=== PATIENT | male | born 1980 | race Caucasian/White ===

== ENCOUNTER 2018-03-29 17:06 | Inpatient (IN) | payer MEDICAID, SELFPAY ==
[2018-03-29] VITALS (7 sets, daily range): BP systolic 110–175; BP diastolic 75–99; PULSE 89–95; RESP 14–25; TEMP 36.1–39.2; O2SAT 96–100; BMI 40.2; BMI 26.8
--- NOTE | 2018-03-29 17:26 | EKG12_ITS ---
Test Reason : HEADACHE Blood Pressure : / mmHG Vent. Rate : 085 BPM Atrial Rate : 085 BPM P-R Int : 142 ms QRS Dur : 100 ms QT Int : 338 ms P-R-T Axes : 069 062 055 degrees QTc Int : 402 ms Normal sinus rhythm Normal ECG Confirmed by HUBER PITT, GONZÁLEZ ([id number]), telegraph editor WILLIAM RAMEY ([id number] on 04/05/2018 2:24:58 PM Referred By: MR Confirmed By:GONZÁLEZ NGO MD
--- NOTE | 2018-03-29 17:26 | CT_ITS ---
STUDY: CTA OF THE BRAIN REASON FOR EXAM: Male, 38 years old. Lightheaded. Headache. Recent drug use. RADIATION DOSAGE (If Supplied By Facility): CTDIvol = ( 29.27 ) mGy, DLP = ( 1591.20 ) mGycm TECHNIQUE: CT angiography was performed with a multi-detector CT scanner. Data acquisition was obtained from the skull base through the vertex following intravenous administration of 100 ml of Isovue-370. MIP images were reconstructed from the axial data set. Post-processing of the angiographic images was performed, with multiplanar reformation and 3D reconstruction. Individualized dose optimization techniques were used for this CT. COMPARISON: None. FINDINGS: There is no acute bleed or infarct. The ventricles are normal in configuration. Normal bilateral petrous carotid arteries. Normal right cavernous carotid artery with a normal supraclinoid bifurcation. Normal left cavernous carotid artery with a normal supraclinoid bifurcation. Normal right A1 segments of the anterior cerebral artery. Normal left A1 segments of the anterior cerebral artery. Normal intact anterior communicating artery (ACOM). Normal bilateral A2 segments of the anterior cerebral arteries. Normal right M1 and M2 segments of the middle cerebral arteries, with a normal M1 bifurcation. Normal left M1 and M2 segments of the middle cerebral arteries, with a normal M1 bifurcation. Normal right posterior communicating artery (PCOM). Normal left posterior communicating artery (PCOM). Normal bilateral vertebral arteries. Normal basilar artery with a normal basilar bifurcation. The visualized bilateral superior cerebellar (SCA) arteries are normal. Normal bilateral P1, P2 and visualized P3 segments of the posterior cerebral arteries. There is no demonstrated aneurysm of the iliamna of Abad. There is no demonstrated abnormality of the visualized brain. CT/CTA Head W/WO Contrast IMPRESSION: No acute intracranial abnormality. Normal iliamna of Abad without a demonstrated aneurysm or hemodynamically significant stenosis. Electronically Signed: Jaxon Barker, at 19:14 EDT Tel , Service support ,
--- NOTE | 2018-03-29 17:26 | CT_ITS ---
STUDY: CTA NECK WITH CONTRAST REASON FOR EXAM: Male, 38 years old. Headache. Lightheaded. Recent drug use. RADIATION DOSAGE (If Supplied By Facility): CTDIvol = ( 29.27 ) mGy, DLP = ( 1591.20 ) mGycm TECHNIQUE: CT angiography with multi-detector data acquisition was performed from the aortic arch to the skull base following intravenous administration of 100ML ml of Isovue 370 contrast. MIP images were reconstructed from the axial data set. Post-processing of the angiographic images was performed, with multiplanar reformation and 3D reconstruction. Individualized dose optimization techniques were used for this CT. COMPARISON: None. FINDINGS: AORTIC ARCH: Normal visualized aortic arch. Normal origins of the brachiocephalic, left common carotid, and left subclavian arteries. RIGHT CAROTID ARTERIES: Normal right common carotid artery (CCA). Normal right common carotid bulb. Normal origin of the right internal carotid (ICA) artery without a hemodynamically significant stenosis. Normal visualized cervical portion of the right internal carotid artery. Normal origin of the right external carotid artery (ECA). LEFT CAROTID ARTERIES: Normal left common carotid artery (CCA). Normal left common carotid bulb. Normal origin of the left internal carotid (ICA) artery without a hemodynamically significant stenosis. Normal visualized cervical portion of the left internal carotid artery. Normal origin of the left external carotid artery (ECA). VERTEBRAL ARTERIES: Normal bilateral vertebral arteries. CT/CTA Neck W/WO Contrast IMPRESSION: Normal bilateral cervical carotid and vertebral arteries. Electronically Signed: Jaxon Barker, at 19:15 EDT Tel , Service support ,
--- NOTE | 2018-03-29 17:36 | NURSING ---
NO OLD EKGS
[2018-03-29] MEDS: proCHLORPERazine 10 MG/2 ML Vial IV (17:56)
[2018-03-29] MEDS: DiphenhydrAMINE 50 MG/ML Syringe IV (17:59)
[2018-03-29 18:01] LABS: Absolute Lymphocyte Count 2.67 X10^3/ul (0.83-4.51); Absolute Neutrophil Count 2.6 X10^3/uL (2.0-7.7); Basophil# 0.04 X10^3/uL; Basophil% 0.6 % (0-1); Eosinophil# 0.15 X10^3/uL; Eosinophils% 2.4 % (0-5); Hematocrit 38.1 % (40-54); Hemoglobin 12.6 g/dl (13.0-16.5); Lymphocyte # 2.67 X10^3/ul (4.0); Lymphocyte % 42.1 % (19-41); Mean Corp Hgb Conc 33.1 g/gl (32-36); Mean Corpuscular Volume 78.7 fL (80-94); Monocyte# 0.85 X10^3/uL; Monocyte% 13.4 % (0-10); Neutrophil # 2.62 X10^3/uL (2.7-7.7); Neutrophil % 41.3 % (47-70); Platelet Count 294 K/mm3 (150-450); RBC Distribution Width CV 14.2 % (11.6-14.6); RBC Distribution Width SD 40.1 fl (35.1-43.9); Red Blood Count 4.84 M/mm3 (4.6-6.2); White Blood Count 6.3 K/mm3 (4.4-11.0)
[2018-03-29 18:02] LABS: POSITIVE COUNT NO; POSITIVE DIFFERENTIAL NO; POSITIVE MORPHOLOGY NO
[2018-03-29 18:03] LABS: Prothrombin Time (Protime)PT. 13.4 SECONDS (11.7-14.9)
[2018-03-29 18:13] LABS: Bacteria 0 SEEN /hpf (None Seen); Mucous, Urine 0 SEEN /hpf (<or=2+); Red Blood Cells-Urine 0 SEEN /hpf (0-5); Squamous Epithelial Cells - UA 0 SEEN /hpf (0-5); White Blood Cells 0 SEEN /hpf (0-5)
[2018-03-29 18:15] LABS: Color, Urine Yellow (Yellow); Glucose, Dipstick Normal (Normal); Ketone-Dipstick Negative (Negative); Leukocyte Esterase-Dipstick Negative /ul (Negative); Nitrite-Dipstick Negative (Negative); Occult Blood-Urine Negative /ul (Negative); Protein-Dipstick 15 mg/dl (Negative); Urine Bilirubin Dipstick Negative (Negative); Urine Clarity Clear (Clear); Urine Urobilinogen Normal (Normal)
[2018-03-29 18:18] LABS: ALB/GLOB Ratio 0.6 RATIO (0.9-2.4); AST(SGOT) 24 U/L (15-37); Alanine Aminotransfer ALT/SGPT 44 U/L (16-61); Albumin, Serum 2.7 g/dL (3.2-5.0); Alkaline Phosphatase 126 U/L (45-117); Anion Gap 6 (5-15); BUN 11 mg/dL (7-18); Calcium,Total 8.2 mg/dL (8.5-10.1); Chloride 100 mmol/L (98-107); EST Glomerular Filtration Rate 89 mL/min (>60); Est Glom Filt Rate - Afr Amer 108 mL/min (>60); Estimated Creatinine Clearance 124.17 ml/min; Globulin 4.5 g/dL (2.2-4.2); Glucose 105 mg/dL (74-106); Potassium 3.7 mmol/L (3.5-5.1); Protein, Total 7.2 g/dL (6.4-8.2); Sodium Level 135 mmol/L (136-145)
[2018-03-29 19:32] LABS: Lactic Acid 1.5 mmol/L (0.4-2.0)
[2018-03-29] MEDS: Morphine 4 MG/ML Syringe IV (19:36)
[2018-03-29] MEDS: Ondansetron 4 MG/2 ML Vial IV (19:36)
--- NOTE | 2018-03-29 20:28 | HP.PCM_ITS ---
Problem List (1) Meningitis Status: Acute (2) Methamphetamine dependence Status: Acute History of Present Illness Date of Admission: 03/29/18 Chief Complaint: Headache The patient is a 38 year old M with a significant history of tobacco abuse; methamphetamine dependence who presents with persistent excruciating generalized headache that began a day before his admission. Associated with his symptoms is nausea, photophobia and bilateral leg rash. He reports sore neck The emergency department patient was noted to have a fever of 102.6 Fahrenheit. Reportedly he smokes and injects methamphetamine. Past Medical History Medical History: Medical History (Last Updated 03/29/18 @ 22:55 by Paul Schreiber MD) Methamphetamine dependence F15.20 Allergies No Known Allergies Allergy (Verified 03/17/17 04:53) Home Medications: Ambulatory Orders Medication Instructions Recorded No Known/Unobtainable [No Known 01/17/16 Home Medications] Surgical History: no surgical history Lives: Alone Smoking Status: Current every day smoker Tobacco Use: Cigarettes Drugs: - - Methamphetamine - *Family History Maternal Family History: Family History (Last Updated 03/29/18 @ 22:56 by Paul Schreiber MD) Father Hypertension History Items: Cancer - Lymphoma Review of Systems Constitutional: Reports: Chills. Denies: Fever, Weight Change HEENT: Reports: Head Aches. Denies: Sinus Congestion, Sinus Drainage Cardiovascular: Denies: Chest Pain, Palpitations Respiratory: Denies: Cough, Shortness of breath at rest, Sputum production Gastrointestinal: Denies: Abdominal Pain, Nausea, Vomiting Genitourinary: Denies: Dysuria Musculoskeletal: Denies: Joint Pain, Joint Tenderness Skin: Reports: Rash - Bilateral legs. Denies: Wounds Neurological: Denies: Numbness, Tingling, Focal weakness Psychiatric: Denies: Anxiety, Depression, Homicidal Ideations, Suicidal Ideations Hematologic/ Lymphatic: Denies: Easy Bruising, Easy Bleeding VTE Information - Inpt Only VTE Present on Admission: No VTE Mechan Device Prophylaxis: None VTE Pharm Prophylaxis ordered?: Yes Patient Problems: Active and Suspected Problems (Last Updated 03/29/18 @ 22:55 by Paul Schreiber MD) Meningitis (Acute) Methamphetamine dependence (Acute) - Physical Exam General: Alert, Oriented x3, Lethargic - Patient had and received morphine at the time of examination. HEENT: Atraumatic, PERRLA, EOMI, Normocephalic Neck: Supple, No JVD, Negative Carotid Bruits Lungs: Clear to auscultation, Normal air movement Cardiovascular: Regular rate, No murmurs Abdomen: Bowel Sounds Present, Soft, Non Tender Extremities: No edema, Capillary Refill Less than 3 Seconds Skin: - - Petechia rash on bilateral legs. Musculoskeletal: No Tenderness to Palpation of Joints or Extremities Neurological: Cranial nerves II-XII grossly intact, - - Brudzinski sign and Kernig's sign were unremarkable. Psych/Mental Status: Appropriate Vital Signs Temp Pulse Resp BP Pulse Ox 98.9 F 90 14 140/90 H 97 03/29/18 19:09 03/29/18 19:09 03/29/18 19:09 03/29/18 19:09 03/29/18 19:09 Oxygen Flow Rate (L/min) 2 Oxygen Delivery Method Room Air Weight: 150 kg Body Mass Index (BMI) 40.2 Laboratory Tests Past 24 Hrs 03/29/18 03/29/18 03/29/18 17:15 17:15 17:15 WBC 6.3 RBC 4.84 Hgb 12.6 L Hct 38.1 L MCV 78.7 L MCH 26.0 L MCHC 33.1 RDW 14.2 RDW Differential 40.1 Plt Count 294 MPV 9.0 Immature Gran % (Auto) 0.200 Neut % (Auto) 41.3 L Lymph % (Auto) 42.1 H Travis % (Auto) 13.4 H Eos % (Auto) 2.4 Baso % (Auto) 0.6 Absolute Neuts (auto) 2.6 Absolute Lymphs (auto) 2.67 Total Counted Not Reportable PT 13.4 INR 1.0 APTT 40.0 H Sodium 135 L Potassium 3.7 Chloride 100 Carbon Dioxide 29.0 Anion Gap 6 BUN 11 Creatinine 1.00 Estim Creat Clear Calc 124.17 Est GFR (MDRD) Af Amer 108 Est GFR (MDRD) Non-Af 89 BUN/Creatinine Ratio 11.0 Glucose 105 Lactic Acid Calcium 8.2 L Total Bilirubin 0.20 AST 24 ALT 44 Alkaline Phosphatase 126 H Total Protein 7.2 Albumin 2.7 L Globulin 4.5 H Albumin/Globulin Ratio 0.6 L Urine Color Urine Clarity Urine pH Ur Specific [place] Urine Protein Urine Glucose (UA) Urine Ketones Urine Occult Blood Urine Nitrite Urine Bilirubin Urine Urobilinogen Ur Leukocyte Esterase Urine RBC Urine WBC Ur Squamous Epith Cells Urine Bacteria Urine Mucus 03/29/18 03/29/18 18:05 18:39 WBC RBC Hgb Hct MCV MCH MCHC RDW RDW Differential Plt Count MPV Immature Gran % (Auto) Neut % (Auto) Lymph % (Auto) Travis % (Auto) Eos % (Auto) Baso % (Auto) Absolute Neuts (auto) Absolute Lymphs (auto) Total Counted PT INR APTT Sodium Potassium Chloride Carbon Dioxide Anion Gap BUN Creatinine Estim Creat Clear Calc Est GFR (MDRD) Af Amer Est GFR (MDRD) Non-Af BUN/Creatinine Ratio Glucose Lactic Acid 1.5 Calcium Total Bilirubin AST ALT Alkaline Phosphatase Total Protein Albumin Globulin Albumin/Globulin Ratio Urine Color Yellow Urine Clarity Clear Urine pH 8.0 Ur Specific [place] 1.010 Urine Protein 15 H Urine Glucose (UA) Normal Urine Ketones Negative Urine Occult Blood Negative Urine Nitrite Negative Urine Bilirubin Negative Urine Urobilinogen Normal Ur Leukocyte Esterase Negative Urine RBC 0 SEEN Urine WBC 0 SEEN Ur Squamous Epith Cells 0 SEEN Urine Bacteria 0 SEEN Urine Mucus 0 SEEN Assessment/Plan All Active Problems (Last Updated 03/29/18 @ 22:55 by Paul Schreiber MD) Meningitis (Acute) Methamphetamine dependence (Acute) The patient is a 38 year old M with a significant history of tobacco abuse; methamphetamine dependence who presents with persistent excruciating generalized headache; photophobia; fever and petechial rash on his bilateral lower extremities concerning for meningitis. Probable meningitis Lumbar puncture was done at the emergency department. Cerebrospinal fluid studies are pending. CT head and neck was unremarkable. Because the petechia rash, meningococcus meningitis is likely. Blood cultures are pending. Patient was initiated on vancomycin and ceftriaxone at emergency department. Discussed with ED doctor to add Decadron and acyclovir. Vancomycin, ceftriaxone, Decadron and acyclovir continued. We will consult infectious disease to optimize management. Placed on droplet precaution. Zofran as needed for nausea Morphine as needed for pain Supportive treatment with normal saline hydration. Tylenol as needed for fever. Methamphetamine dependence Counseled Clinical monitoring. Tobacco abuse Counseled Patient declined nicotine patch. DVT prophylaxis Subcutaneous heparin. Code Visit Inpatient E&M: 06392 Init Hosp L3
--- NOTE | 2018-03-29 20:33 | ED.VISSUMM ---
- ER Visit Summary Date of Service: 03/29/18 Chief Complaint: Headache History of Present Illness: The patient is a 38 M presenting for evaluation secondary to a headache. Patient has a underlying history of methamphetamine use. He both injects and smokes. Last time he smoked was 3 days ago. Patient reports that this evening at approximately midnight he was awoken suddenly from sleep with a sudden onset of a severe headache. Patient reports that it is in his occiput the front of his head and behind his eyes. It has been a continuous sharp throbbing headache. He states that it is associated with some sensitivity to light and sound. Patient states that he has not had any recent head injuries and denies any fevers, but does state that he noticed a development of a rash on his legs bilaterally. He denies any numbness or visual changes associated with this. He does endorse some generalized weakness. He denies any family history of aneurysm. Physical Examination: Vital signs: Within normal limits except for initial blood pressure 175/99 which improved to 140/90 General: Well-nourished well-developed visibly in pain but not in physiologic distress Head: Normocephalic atraumatic, both occipital and temporal tenderness to palpation are noted without any evidence of step-offs or deformities vesicular rash noted. No sinus tenderness to percussion. Eyes: PERRLA, EOMI. Direct funduscopy shows no evidence of hemorrhage or papilledema. Neck: Supple, no lymphadenopathy, no JVD no meningismus. Negative Brudzinski, Kernig, jolt, and heel strike Cardiovascular: Heart regular rate and rhythm no murmurs Respiratory: Lung sounds clear to auscultation bilaterally no respiratory distress Abdomen: Soft, nontender Extremities: Nontender, no edema Skin: Normal color, petechial rashes noted on the patient's lower extremities bilaterally Neuro: Alert and oriented ?4, cranial nerves II through XII intact, normal strength, sensation Test Results: CBC within normal limits, chemistry within normal limits. EKG shows sinus rate of [address] segments normal T waves. Lactic acid found to be negative. CT angiogram both with and without contrast of the brain and neck are found to be negative. Emergency Department Course and Treatment: Patient presented for evaluation secondary to a sudden onset of a headache. Patient has a history of IV drug use, had a sudden onset of the headache, and also has concomitant petechia. There is concern for the possibility of meningitis versus subarachnoid hemorrhage. Unfortunately the patient's time of onset is well outside of the normal 6 hours for noncontrasted head CT to have adequate sensitivity. CT angiogram was performed and was negative. Patient's blood work was found to be negative he was given Compazine and Benadryl and had some improvement and was given morphine and Zofran. I do believe that he warrants a lumbar puncture. I discussed with him the risks and benefits of lumbar puncture. Written consent was signed. Patient was placed in the left lateral decubitus position. Patient's back was prepped with Betadine, he was draped in a sterile fashion. 5 cc of 2% lidocaine were used for anesthesia. A spinal needle with stylette was then placed in the L4-L5 interspace and on first attempt cerebrospinal fluid was obtained. A total of 8 cc of clear fluid were obtained, and the patient had a dressing placed over top of this and was left in a recumbent position. Patient will be started on vancomycin and Rocephin as I believe him to be high risk for meningitis. Patient will be admitted to the hospitalist. Disposition: Admission Impression: 1. Intractable headache 2. Petechial rash 3. History of IV drug abuse 4. Lumbar puncture by ED physician Critical care time 40 minutes This note was generated with [email or web address] dictation software. It may contain incorrect words, spelling, and punctuation that were not noted in review of the chart prior to signing ED Disposition - Plan for ED Patient: Chief Complaint: Headache Referrals: Care Physician,No Primary [Primary Care Provider] -
[2018-03-29 20:48] LABS: Body Fluid Mononuclear WBC # 0.404 10^3/uL; Body Fluid Mononuclear WBC % 62.7 %; Body Fluid Polynuclear WBC % 37.3 %; Total Cell Count CSF 0.648 10^3/uL (0.000-0.000); White Count, CSF 0.644 10^3/uL (0.000-0.000)
[2018-03-29 20:55] LABS: Glucose Spinal Fluid 44 mg/dL (40-75)
[2018-03-29 21:08] LABS: Auto B Fluid Analyzer BKGD Ct COUNTS W/IN LIMITS (W/IN LIMITS); Tested Tube # 4
[2018-03-29 21:09] LABS: Appearance CSF (character) CLEAR (Clear); CSF Color COLORLESS (Colorless); RBC Count, Spinal Fluid 2 /mm-3 (None seen)
--- NOTE | 2018-03-29 21:18 | ED.RN ---
DR. HORTON MADE AWARE THAT PATIENT HAS A TEMPERATURE OF 102.6.
[2018-03-29] MEDS: Acetaminophen 500 MG Tablet 1000 MG PO (21:27)
[2018-03-29 21:41] LABS: Lymphocytes,CSF 7 % (40 - 80); Monocytes,CSF 27 % (15 - 45); Neutrophils,CSF 66 % (0 - 6)
[2018-03-29 21:42] LABS: Body Fluid QC Type(s) BF2Q
--- NOTE | 2018-03-29 23:22 | PCM.RX.CS ---
Consult Pharmacy has been consulted to manage selected antiobiotic: Vancomycin Type of Consult: New start Suspected Infection: Meningitis Prior Doses of Antibiotics Received/Current Regimen: Medications Vancomycin HCl 1,250 mg/ (Sodium Chloride) 275 mls @ 167 mls/hr IV Q8H HERNAN Discontinued Medications Vancomycin HCl 2,000 mg/ (Sodium Chloride) 540 mls @ 250 mls/hr IV X1 ONE Stop: 03/29/18 22:09 Last Admin: 03/29/18 19:56 Dose: 250 mls/hr Labs: Sodium 135 mmol/L (136-145) L 03/29/18 17:15 Potassium 3.7 mmol/L (3.5-5.1) 03/29/18 17:15 Chloride 100 mmol/L (98-107) 03/29/18 17:15 Carbon Dioxide 29.0 mmol/L (21.0-32.0) 03/29/18 17:15 Anion Gap 6 (5-15) 03/29/18 17:15 BUN 11 mg/dL (7-18) 03/29/18 17:15 Creatinine 1.00 mg/dL (0.70-1.30) 03/29/18 17:15 Est GFR (MDRD) Af Amer 108 mL/min (>60) 03/29/18 17:15 Est GFR (MDRD) Non-Af 89 mL/min (>60) 03/29/18 17:15 BUN/Creatinine Ratio 11.0 RATIO (10-20) 03/29/18 17:15 Glucose 105 mg/dL (74-106) 03/29/18 17:15 Microbiology: Microbiology 03/29/18 20:20 Csf, Spinal Fluid Gram Stain - Preliminary 03/29/18 20:20 Csf, Spinal Fluid Streptococcus pneumoniae Antigen (M - Final Weight used for dosin kg Estimated Creatinine Clearance: 124 Goal Trough: 15-20 mcg/mL Pharmacy Plan for Drug Dosing: Goal trough level of 15-20. Will draw before 4th dose of vancomycin. Pharmacy Service will continue to monitor and adjust dosing as required. Follow-Up Labs: Trough Vancomycin Labs to be done on [date and time ordered]: 03/30/18 @1930
[2018-03-29] MEDS: 0.9% Normal Saline 1,000 ML 75 ML IV (23:51)
[2018-03-30] VITALS (12 sets, daily range): BP systolic 128–157; BP diastolic 72–100; PULSE 58–89; RESP 18; TEMP 36.4–37; O2SAT 94–99
[2018-03-30] MEDS: Morphine 2 MG/ML Syringe IV ×2 (04:24→12:52)
[2018-03-30] MEDS: 0.9% NaCl Peripheral Flush Adult/Peds IV (06:26)
[2018-03-30 06:50] LABS: Hematocrit 40.8 % (40-54); Hemoglobin 13.2 g/dl (13.0-16.5); Mean Corp Hgb Conc 32.4 g/gl (32-36); Mean Corpuscular Hgb 25.8 pg (27.0-32.0); Mean Corpuscular Volume 79.7 fL (80-94); Mean Platelet Vol. 9.5 fl (6.2-12.0); Platelet Count 168 K/mm3 (150-450); RBC Distribution Width CV 14.5 % (11.6-14.6); RBC Distribution Width SD 41.5 fl (35.1-43.9); Red Blood Count 5.12 M/mm3 (4.6-6.2); White Blood Count 4.7 K/mm3 (4.4-11.0)
[2018-03-30 07:07] LABS: Anion Gap 9 (5-15); BUN 10 mg/dL (7-18); BUN/Creat Ratio 11.2 RATIO (10-20); Calcium,Total 8.5 mg/dL (8.5-10.1); Chloride 102 mmol/L (98-107); Creatinine, Serum 0.89 mg/dL (0.70-1.30); EST Glomerular Filtration Rate 102 mL/min (>60); Est Glom Filt Rate - Afr Amer 124 mL/min (>60); Estimated Creatinine Clearance 135.82 ml/min; Glucose 132 mg/dL (74-106); Potassium 4.4 mmol/L (3.5-5.1); Sodium Level 135 mmol/L (136-145)
[2018-03-30 07:11] LABS: Scan Indicated on CBC? Y/N NO
--- NOTE | 2018-03-30 08:08 | PCM.PROGNOTE ---
Patient Problems: Active and Suspected Problems (Last Updated 03/29/18 @ 22:55 by Paul Schreiber MD) Meningitis (Acute) Methamphetamine dependence (Acute) Subjective: Chief complaint: Follow-up after admission for headache with fever, probable meningitis and elevated blood pressure. Patient seen and examined. No acute events overnight. He is still complaining of headache and neck pain. He had only one spike of fever at 102.6, since then he has been afebrile. He denies chest pain or shortness of breath. Denied abdominal pain, nausea vomiting. He denied slurred speech, blurred vision, numbness or tingling. His blood pressure has been elevated, other vital signs are stable. - Physical Exam General: Alert, Oriented x3, Cooperative, No apparent distress HEENT: Atraumatic, PERRLA, EOMI, Normocephalic Oral: Moist Mucosa, No Gingival or Mucosal Lesions/ Ulcerations Neck: Supple, No JVD, Negative Carotid Bruits, Trachea Midline, Thyroid Normal Size and Texture, - - Painful neck movement. Lungs: Clear to auscultation, Normal air movement, No rhonchi, No wheeze, No rales Cardiovascular: Regular rate, Regular Rhythm, Normal S1, Normal S2, No murmurs Abdomen: Bowel Sounds Present, Soft, Non Tender, Non-Distended, No Hepato-splenomegaly Extremities: No clubbing, No cyanosis, No edema Skin: No rashes, No breakdown Lymphatic: No Cervical, Supraclavicular, or Inguinal Adenopathy Neurological: Cranial nerves II-XII grossly intact, Motor Exam 5/5 strength throughout Psych/Mental Status: Normal Affect, Appropriate, Alert and oriented to time, place, person, mood and affect Vital Signs Temp Pulse Resp BP Pulse Ox 97.6 F L 76 18 157/100 H 94 03/30/18 04:19 03/30/18 07:01 03/30/18 04:19 03/30/18 04:19 03/30/18 04:19 Oxygen Flow Rate (L/min) 2 Oxygen Delivery Method Room Air Weight: 220 lb 7.396 oz Body Mass Index (BMI) 26.8 Intake and Output for Last 24 Hours 03/28/18 03/29/18 03/30/18 23:59 23:59 23:59 Intake Total 1500 / 1500 Output Total 2175 / 2175 Balance -675 / -675 Microbiology Past 72 Hours 03/29/18 20:20 Gram Stain - Preliminary Csf, Spinal Fluid 03/29/18 20:20 Streptococcus pneumoniae Antigen (M - Final Csf, Spinal Fluid Laboratory Tests Past 24 Hrs 03/29/18 03/29/18 03/29/18 17:15 17:15 17:15 WBC 6.3 RBC 4.84 Hgb 12.6 L Hct 38.1 L MCV 78.7 L MCH 26.0 L MCHC 33.1 RDW 14.2 RDW Differential 40.1 Plt Count 294 MPV 9.0 Immature Gran % (Auto) 0.200 Neut % (Auto) 41.3 L Lymph % (Auto) 42.1 H [place] % (Auto) 13.4 H Eos % (Auto) 2.4 Baso % (Auto) 0.6 Absolute Neuts (auto) 2.6 Absolute Lymphs (auto) 2.67 Total Counted Not Reportable PT 13.4 INR 1.0 APTT 40.0 H Sodium 135 L Potassium 3.7 Chloride 100 Carbon Dioxide 29.0 Anion Gap 6 BUN 11 Creatinine 1.00 Estim Creat Clear Calc 124.17 Est GFR (MDRD) Af Amer 108 Est GFR (MDRD) Non-Af 89 BUN/Creatinine Ratio 11.0 Glucose 105 Lactic Acid Calcium 8.2 L Total Bilirubin 0.20 AST 24 ALT 44 Alkaline Phosphatase 126 H Total Protein 7.2 Albumin 2.7 L Globulin 4.5 H Albumin/Globulin Ratio 0.6 L Urine Color Urine Clarity Urine pH Ur Specific [place] Urine Protein Urine Glucose (UA) Urine Ketones Urine Occult Blood Urine Nitrite Urine Bilirubin Urine Urobilinogen Ur Leukocyte Esterase Urine RBC Urine WBC Ur Squamous Epith Cells Urine Bacteria Urine Mucus Fld Polynuclear WBCs # Fld Polynuclear WBCs % Fluid Mononuclear WBCs Fld Mononuclear WBCs % CSF Appearance CSF Color CSF WBC CSF RBC CSF Cell Count Tube # CSF Total Cell Counted CSF Neutrophils CSF Lymphocytes CSF Monocytes CSF Comment CSF Glucose CSF Total Protein 03/29/18 03/29/18 03/29/18 18:05 18:39 20:20 WBC RBC Hgb Hct MCV MCH MCHC RDW RDW Differential Plt Count MPV Immature Gran % (Auto) Neut % (Auto) Lymph % (Auto) [place] % (Auto) Eos % (Auto) Baso % (Auto) Absolute Neuts (auto) Absolute Lymphs (auto) Total Counted PT INR APTT Sodium Potassium Chloride Carbon Dioxide Anion Gap BUN Creatinine Estim Creat Clear Calc Est GFR (MDRD) Af Amer Est GFR (MDRD) Non-Af BUN/Creatinine Ratio Glucose Lactic Acid 1.5 Calcium Total Bilirubin AST ALT Alkaline Phosphatase Total Protein Albumin Globulin Albumin/Globulin Ratio Urine Color Yellow Urine Clarity Clear Urine pH 8.0 Ur Specific [place] 1.010 Urine Protein 15 H Urine Glucose (UA) Normal Urine Ketones Negative Urine Occult Blood Negative Urine Nitrite Negative Urine Bilirubin Negative Urine Urobilinogen Normal Ur Leukocyte Esterase Negative Urine RBC 0 SEEN Urine WBC 0 SEEN Ur Squamous Epith Cells 0 SEEN Urine Bacteria 0 SEEN Urine Mucus 0 SEEN Fld Polynuclear WBCs # Fld Polynuclear WBCs % Fluid Mononuclear WBCs Fld Mononuclear WBCs % CSF Appearance CSF Color CSF WBC CSF RBC CSF Cell Count Tube # CSF Total Cell Counted CSF Neutrophils CSF Lymphocytes CSF Monocytes CSF Comment CSF Glucose 44 CSF Total Protein 03/29/18 03/29/18 03/30/18 20:20 20:20 06:00 WBC 4.7 RBC 5.12 Hgb 13.2 Hct 40.8 MCV 79.7 L MCH 25.8 L MCHC 32.4 RDW 14.5 RDW Differential 41.5 Plt Count 168 MPV 9.5 Immature Gran % (Auto) Neut % (Auto) Lymph % (Auto) [place] % (Auto) Eos % (Auto) Baso % (Auto) Absolute Neuts (auto) Absolute Lymphs (auto) Total Counted PT INR APTT Sodium Potassium Chloride Carbon Dioxide Anion Gap BUN Creatinine Estim Creat Clear Calc Est GFR (MDRD) Af Amer Est GFR (MDRD) Non-Af BUN/Creatinine Ratio Glucose Lactic Acid Calcium Total Bilirubin AST ALT Alkaline Phosphatase Total Protein Albumin Globulin Albumin/Globulin Ratio Urine Color Urine Clarity Urine pH Ur Specific [place] Urine Protein Urine Glucose (UA) Urine Ketones Urine Occult Blood Urine Nitrite Urine Bilirubin Urine Urobilinogen Ur Leukocyte Esterase Urine RBC Urine WBC Ur Squamous Epith Cells Urine Bacteria Urine Mucus Fld Polynuclear WBCs # 0.240 Fld Polynuclear WBCs % 37.3 Fluid Mononuclear WBCs 0.404 Fld Mononuclear WBCs % 62.7 CSF Appearance CLEAR CSF Color COLORLESS CSF WBC 0.644 H CSF RBC 2 H CSF Cell Count Tube # 4 CSF Total Cell Counted 0.648 H CSF Neutrophils 66 H CSF Lymphocytes 7 L CSF Monocytes 27 CSF Comment May follow CSF Glucose CSF Total Protein 80.0 H 03/30/18 06:00 WBC RBC Hgb Hct MCV MCH MCHC RDW RDW Differential Plt Count MPV Immature Gran % (Auto) Neut % (Auto) Lymph % (Auto) [place] % (Auto) Eos % (Auto) Baso % (Auto) Absolute Neuts (auto) Absolute Lymphs (auto) Total Counted PT INR APTT Sodium 135 L Potassium 4.4 Chloride 102 Carbon Dioxide 24.0 Anion Gap 9 BUN 10 Creatinine 0.89 Estim Creat Clear Calc 135.82 Est GFR (MDRD) Af Amer 124 Est GFR (MDRD) Non-Af 102 BUN/Creatinine Ratio 11.2 Glucose 132 H Lactic Acid Calcium 8.5 Total Bilirubin AST ALT Alkaline Phosphatase Total Protein Albumin Globulin Albumin/Globulin Ratio Urine Color Urine Clarity Urine pH Ur Specific [place] Urine Protein Urine Glucose (UA) Urine Ketones Urine Occult Blood Urine Nitrite Urine Bilirubin Urine Urobilinogen Ur Leukocyte Esterase Urine RBC Urine WBC Ur Squamous Epith Cells Urine Bacteria Urine Mucus Fld Polynuclear WBCs # Fld Polynuclear WBCs % Fluid Mononuclear WBCs Fld Mononuclear WBCs % CSF Appearance CSF Color CSF WBC CSF RBC CSF Cell Count Tube # CSF Total Cell Counted CSF Neutrophils CSF Lymphocytes CSF Monocytes CSF Comment CSF Glucose CSF Total Protein Clinical Impression(s) from Imaging Studies Head CTA 03/29/18 17:26 IMPRESSION: No acute intracranial abnormality. Normal [place] without a demonstrated aneurysm or hemodynamically significant stenosis. Electronically Signed: Jaxon Barker, at 19:14 EDT Tel , Service support , Neck CTA 03/29/18 17:26 IMPRESSION: Normal bilateral cervical carotid and vertebral arteries. Electronically Signed: Jaxon Barker, at 19:15 EDT Tel , Service support , Medical Necessity - Tobacco Use Smoking Status: Current every day smoker Tobacco Use: Cigarettes Assessment/Plan All Active Problems (Last Updated 03/29/18 @ 22:55 by Paul Schreiber MD) Meningitis (Acute) Methamphetamine dependence (Acute) This is a 38 years old male patient presented to the emergency department because of headache and bilateral lower extremity skin rash, had a spike of fever in the ER, underwent lumbar puncture and he was admitted as a case of probable meningitis. #1 headache/probable meningitis: Head and neck CTA revealed no evidence of acute hemodynamically significant vascular disease or stenosis, no hemorrhage or infarction. His routine blood work was unremarkable. He has no leukocytosis, his lymphocyte count is almost close to normal. Lactic acid and LFT was unremarkable. Urinalysis showed no evidence of acute cystitis. Since that one spike of fever, patient has been afebrile, not tachycardic, pulse ox is maintained on room air. Of note, upon arrival to his blood pressure was 175/99. CSF analysis reviewed. CSF was colorless, there was 644 WBCs, mainly neutrophils, glucose was 44 and protein is 80. CSF findings is not typical for either bacterial or viral meningitis. Patient is on IV acyclovir, Rocephin and vancomycin. Infectious disease consulted, awaiting their recommendations. At this time, this headache could be due to elevated blood pressure but this cannot explain the one spike of fever that patient had as well as bilateral leg skin rash and neck pain. The skin rash on both legs is not typical for petechial rash. Plan to continue same treatment. #2 drug abuse: Patient admitted using methamphetamines. #3 tobacco abuse: Patient declined nicotine patch. #4 DVT prophylaxis: Subcu heparin. This note was generated with DGITation software. It may contain incorrect words, spelling, and punctuation that were not noted in checking the note before signing. Code Visit Inpatient E&M: 72963 Subs Hosp L2
--- NOTE | 2018-03-30 10:28 | CON.PCM_ITS ---
Problem List (1) Meningitis Status: Acute Reason for Consult: meningitis Consulted by: Dr. Castorena History of Present Illness: The patient is a 38 year old M with current IVDU with meth and also heroin. Last injected several days ago. Reports neg hiv and hepatitis test a while ago. Does share needles. No h/o cold sores or HSV. Did have chicken pox as a kid. Sx started with severe 10/10 throbbing whole head headache with some neck sti ffness and photophobia. Developed rash a few days prior to headache, not itchy, on lower legs. Had some nausea. Denies fever or chills. No sick contacts, denies any close household contacts while he's been sick. Came to ED, LP done, started on vanc/ceftriaxone/acyclovir. Headache improved this AM, rated 5/10. Full ROS performed and neg except as noted above. - Medical History Surgical History: reviewed Allergies/Adverse Reactions: Allergies No Known Allergies Allergy (Verified 03/17/17 04:53) Home Medications: Ambulatory Orders Medication Instructions Recorded No Known/Unobtainable [No Known 01/17/16 Home Medications] - Social History Tobacco Use: cigarettes Drug Use: heroin - and meth Vital Signs Temp Pulse Resp BP Pulse Ox 98.2 F 89 18 139/89 H 98 03/30/18 09:09 03/30/18 09:09 03/30/18 09:09 03/30/18 09:09 03/30/18 09:09 Oxygen Flow Rate (L/min) 2 Oxygen Delivery Method Room Air Weight: 100 kg Body Mass Index (BMI) 26.8 Microbiology Past 72 Hours 03/29/18 20:20 Gram Stain - Preliminary Csf, Spinal Fluid 03/29/18 20:20 Streptococcus pneumoniae Antigen (M - Final Csf, Spinal Fluid Laboratory Tests Past 24 Hrs 03/29/18 03/29/18 03/29/18 17:15 17:15 17:15 WBC 6.3 RBC 4.84 Hgb 12.6 L Hct 38.1 L MCV 78.7 L MCH 26.0 L MCHC 33.1 RDW 14.2 RDW Differential 40.1 Plt Count 294 MPV 9.0 Immature Gran % (Auto) 0.200 Neut % (Auto) 41.3 L Lymph % (Auto) 42.1 H [place] % (Auto) 13.4 H Eos % (Auto) 2.4 Baso % (Auto) 0.6 Absolute Neuts (auto) 2.6 Absolute Lymphs (auto) 2.67 Total Counted Not Reportable PT 13.4 INR 1.0 APTT 40.0 H Sodium 135 L Potassium 3.7 Chloride 100 Carbon Dioxide 29.0 Anion Gap 6 BUN 11 Creatinine 1.00 Estim Creat Clear Calc 124.17 Est GFR (MDRD) Af Amer 108 Est GFR (MDRD) Non-Af 89 BUN/Creatinine Ratio 11.0 Glucose 105 Lactic Acid Calcium 8.2 L Total Bilirubin 0.20 AST 24 ALT 44 Alkaline Phosphatase 126 H Total Protein 7.2 Albumin 2.7 L Globulin 4.5 H Albumin/Globulin Ratio 0.6 L Urine Color Urine Clarity Urine pH Ur Specific [place] Urine Protein Urine Glucose (UA) Urine Ketones Urine Occult Blood Urine Nitrite Urine Bilirubin Urine Urobilinogen Ur Leukocyte Esterase Urine RBC Urine WBC Ur Squamous Epith Cells Urine Bacteria Urine Mucus Fld Polynuclear WBCs # Fld Polynuclear WBCs % Fluid Mononuclear WBCs Fld Mononuclear WBCs % CSF Appearance CSF Color CSF WBC CSF RBC CSF Cell Count Tube # CSF Total Cell Counted CSF Neutrophils CSF Lymphocytes CSF Monocytes CSF Comment CSF Glucose CSF Total Protein 03/29/18 03/29/18 03/29/18 18:05 18:39 20:20 WBC RBC Hgb Hct MCV MCH MCHC RDW RDW Differential Plt Count MPV Immature Gran % (Auto) Neut % (Auto) Lymph % (Auto) [place] % (Auto) Eos % (Auto) Baso % (Auto) Absolute Neuts (auto) Absolute Lymphs (auto) Total Counted PT INR APTT Sodium Potassium Chloride Carbon Dioxide Anion Gap BUN Creatinine Estim Creat Clear Calc Est GFR (MDRD) Af Amer Est GFR (MDRD) Non-Af BUN/Creatinine Ratio Glucose Lactic Acid 1.5 Calcium Total Bilirubin AST ALT Alkaline Phosphatase Total Protein Albumin Globulin Albumin/Globulin Ratio Urine Color Yellow Urine Clarity Clear Urine pH 8.0 Ur Specific [place] 1.010 Urine Protein 15 H Urine Glucose (UA) Normal Urine Ketones Negative Urine Occult Blood Negative Urine Nitrite Negative Urine Bilirubin Negative Urine Urobilinogen Normal Ur Leukocyte Esterase Negative Urine RBC 0 SEEN Urine WBC 0 SEEN Ur Squamous Epith Cells 0 SEEN Urine Bacteria 0 SEEN Urine Mucus 0 SEEN Fld Polynuclear WBCs # Fld Polynuclear WBCs % Fluid Mononuclear WBCs Fld Mononuclear WBCs % CSF Appearance CSF Color CSF WBC CSF RBC CSF Cell Count Tube # CSF Total Cell Counted CSF Neutrophils CSF Lymphocytes CSF Monocytes CSF Comment CSF Glucose 44 CSF Total Protein 03/29/18 03/29/18 03/30/18 20:20 20:20 06:00 WBC 4.7 RBC 5.12 Hgb 13.2 Hct 40.8 MCV 79.7 L MCH 25.8 L MCHC 32.4 RDW 14.5 RDW Differential 41.5 Plt Count 168 MPV 9.5 Immature Gran % (Auto) Neut % (Auto) Lymph % (Auto) [place] % (Auto) Eos % (Auto) Baso % (Auto) Absolute Neuts (auto) Absolute Lymphs (auto) Total Counted PT INR APTT Sodium Potassium Chloride Carbon Dioxide Anion Gap BUN Creatinine Estim Creat Clear Calc Est GFR (MDRD) Af Amer Est GFR (MDRD) Non-Af BUN/Creatinine Ratio Glucose Lactic Acid Calcium Total Bilirubin AST ALT Alkaline Phosphatase Total Protein Albumin Globulin Albumin/Globulin Ratio Urine Color Urine Clarity Urine pH Ur Specific [place] Urine Protein Urine Glucose (UA) Urine Ketones Urine Occult Blood Urine Nitrite Urine Bilirubin Urine Urobilinogen Ur Leukocyte Esterase Urine RBC Urine WBC Ur Squamous Epith Cells Urine Bacteria Urine Mucus Fld Polynuclear WBCs # 0.240 Fld Polynuclear WBCs % 37.3 Fluid Mononuclear WBCs 0.404 Fld Mononuclear WBCs % 62.7 CSF Appearance CLEAR CSF Color COLORLESS CSF WBC 0.644 H CSF RBC 2 H CSF Cell Count Tube # 4 CSF Total Cell Counted 0.648 H CSF Neutrophils 66 H CSF Lymphocytes 7 L CSF Monocytes 27 CSF Comment May follow CSF Glucose CSF Total Protein 80.0 H 03/30/18 06:00 WBC RBC Hgb Hct MCV MCH MCHC RDW RDW Differential Plt Count MPV Immature Gran % (Auto) Neut % (Auto) Lymph % (Auto) [place] % (Auto) Eos % (Auto) Baso % (Auto) Absolute Neuts (auto) Absolute Lymphs (auto) Total Counted PT INR APTT Sodium 135 L Potassium 4.4 Chloride 102 Carbon Dioxide 24.0 Anion Gap 9 BUN 10 Creatinine 0.89 Estim Creat Clear Calc 135.82 Est GFR (MDRD) Af Amer 124 Est GFR (MDRD) Non-Af 102 BUN/Creatinine Ratio 11.2 Glucose 132 H Lactic Acid Calcium 8.5 Total Bilirubin AST ALT Alkaline Phosphatase Total Protein Albumin Globulin Albumin/Globulin Ratio Urine Color Urine Clarity Urine pH Ur Specific [place] Urine Protein Urine Glucose (UA) Urine Ketones Urine Occult Blood Urine Nitrite Urine Bilirubin Urine Urobilinogen Ur Leukocyte Esterase Urine RBC Urine WBC Ur Squamous Epith Cells Urine Bacteria Urine Mucus Fld Polynuclear WBCs # Fld Polynuclear WBCs % Fluid Mononuclear WBCs Fld Mononuclear WBCs % CSF Appearance CSF Color CSF WBC CSF RBC CSF Cell Count Tube # CSF Total Cell Counted CSF Neutrophils CSF Lymphocytes CSF Monocytes CSF Comment CSF Glucose CSF Total Protein - Other Studies Radiology: [] reviewed Other Studies: [] Route of nutrition/ use of supplements: [] Nutritional Intake: [] IV Site: [] Colvin Catheter: [] - Physical Exam General: Alert, Oriented x3, Cooperative, No apparent distress HEENT: Atraumatic, PERRLA, EOMI Neck: No Nodes, - - mild stiffness Lungs: Clear to auscultation, Normal air movement Cardiovascular: Regular rate, Regular Rhythm, No murmurs Abdomen: Soft, Non Tender, Non-Distended Extremities: No edema Skin: Rash Present - on legs IV Site: Peripheral, without redness Musculoskeletal: No Tenderness to Palpation of Joints or Extremities Neurological: Cranial nerves II-XII grossly intact - Assessment/Plan Antibiotics: [] Assessment/Plan: [] Active and Suspected Problems (Last Updated 03/29/18 @ 22:55 by Paul Schreiber MD) Meningitis (Acute) Methamphetamine dependence (Acute) acute meningitis - timing and severity raises concern for bacterial cause. CSF cx pending. Sx improved today. Continue vanc/ceftriaxone/acyclovir. Will add on HSV pcr to CSF studies. Fever last night to 102.6. IVDU - meth and heroin use. He consents to hiv and hep studies. Will follow, thank you.
--- NOTE | 2018-03-30 10:34 | CASEMGMT ---
Addendum entered by Kaylee Navas 03/30/18 11:22: SW called [employer], pt's Medicaid has not been active since October. SW met w/pt again, let him know that his Medicaid has not been active since October. Pt does not use his medical card often, was not aware. SW gave pt a Medicaid application and the 800 number, encouraged pt to call to reapply for Medicaid. SW also gave pt information on [facility], [place] [facility], and [facility]. Pt declined information on food pantries as he states knows where they are, declined information on [employer] as he is familiar with them as well, and again declined information on [employer]. SW remains available should any other needs arise. AZALEA Sosa, SENIOR COMMUNICATIONS ENGINEER Original Note: SW spoke w/pt in room, as pt is listed as self pay and pt uses methamphetamines. SW asked pt about his insurance, pt thought his [place] Medicaid was active. SW explained can call [employer] as our financial dept looked it up and the insurance came up as not active. SW also asked pt about his methamphetamine use. Pt states is going to [employer] at discharge, he states spoke w/them and they have a spot for him. Pt is familiar w/[employer] and plans to follow up w/them at discharge, declined any information from SW regarding [employer]. SW will call [employer] to check on pt's insurance and follow up w/pt. AZALEA Sosa, SENIOR COMMUNICATIONS ENGINEER
[2018-03-30] MEDS: hydroCHLOROthiazide 12.5mg 12.5 MG PO (10:47)
[2018-03-30] MEDS: Lisinopril 10 MG Tablet PO (10:47)
[2018-03-30 12:24] LABS: HIV - WCH Non-Reactive (Nonreactive)
[2018-03-30 14:19] LABS: Pathologist Review Reviewed
--- NOTE | 2018-03-30 15:14 | CHAPLAIN ---
Type of Pastoral Visit _x__ Initial Visit ___ Follow-up Visit ___ On-call Visit ___ General Patient Visit ___ Spiritual Assessment ___ Family Conference ___ Bereavement ___ Rapid Response ___ Code Blue ___ Other (describe below) Pastoral Care Referral From _x__ Patient ___ Family ___ Nurse ___ Physician ___ Transportation Security Screener ___ Hook And Eye Sewing Machine Operator ___ Other (describe below) Sacrament/Intervention _x__ Active listening ___ Anointing ___ Lutheran ___ Bereavement ___ Communion _x__ Carrie exploration ___ _x__ Life review _x__ Prayer ___ Reconciliation ___ Sacrament of Sick _x__ Supportive presence ___ Wedding ___ Other (describe below) Pastoral Comments patient is awake but keeps his eyes closed during much of the visit; pt admits that life sucks and that he is homeless, that child and baby mother have left him, and that he has history of drug use that he wants to overcome; pt says that he does better in life when he is working and that I don't use then; pt says that his plan is to go to [facility] and then get a job; pt says that he has no one to be supportive for him in his life; pt says that he no longer has a carrie connection but that he used to attend a Anabaptist or a Non-latter-day anabaptism and is open to spiritual care and prayer support from butadiene convertor operator; pt was informed of possible help from [facility] [place] and SW at hospital; pt is doubtful about qualifying for [facility] but is open to help from SW; SW on U is informed about this patient
--- NOTE | 2018-03-30 20:56 | PCM.RX.CS ---
Consult Pharmacy has been consulted to manage selected antiobiotic: Vancomycin Type of Consult: Follow-up Suspected Infection: Meningitis Prior Doses of Antibiotics Received/Current Regimen: Patient has been on 1250mg iv q8h. Labs: Sodium 135 mmol/L (136-145) L 03/30/18 06:00 Potassium 4.4 mmol/L (3.5-5.1) 03/30/18 06:00 Chloride 102 mmol/L (98-107) 03/30/18 06:00 Carbon Dioxide 24.0 mmol/L (21.0-32.0) 03/30/18 06:00 Anion Gap 9 (5-15) 03/30/18 06:00 BUN 10 mg/dL (7-18) 03/30/18 06:00 Creatinine 0.89 mg/dL (0.70-1.30) 03/30/18 06:00 Est GFR (MDRD) Af Amer 124 mL/min (>60) 03/30/18 06:00 Est GFR (MDRD) Non-Af 102 mL/min (>60) 03/30/18 06:00 BUN/Creatinine Ratio 11.2 RATIO (10-20) 03/30/18 06:00 Glucose 132 mg/dL (74-106) H 03/30/18 06:00 Vancomycin Trough 12.0 ug/mL (5.0-15.0) 03/30/18 19:38 Microbiology: Microbiology 03/29/18 20:20 Csf, Spinal Fluid Gram Stain - Final 03/29/18 20:20 Csf, Spinal Fluid Streptococcus pneumoniae Antigen (M - Final Weight used for dosin kg Estimated Creatinine Clearance: 136 ml/min Goal Trough: 15-20 mcg/mL Pharmacy Plan for Drug Dosing: Patient has been on 1250mg iv q8h. Vancomycin trough level of ..18 is 12.0 (goal range 15-20 mcg/ml). Renal status Cr 0.89 and CrCl 136. Will increase dose to 1500mg iv q8h and obtain another trough level before 4th dose of 1500mg. Pharmacy Service will continue to monitor and adjust dosing as required. Follow-Up Labs: Trough Vancomycin - 11.3.18 @0330 before 0400 dose
[2018-03-30] MEDS: Acetaminophen 500 MG Tablet PO (21:40)
[2018-03-30] MEDS: MELATONIN 10 MG TABLET 5 MG PO (21:41)
[2018-03-31] VITALS (12 sets, daily range): BP systolic 123–138; BP diastolic 64–78; PULSE 55–85; RESP 14–18; TEMP 36.6–36.8; O2SAT 97–100
[2018-03-31] MEDS: 0.9% NaCl Peripheral Flush Adult/Peds IV ×5 (03:27→22:51)
[2018-03-31 05:08] LABS: HEPATITIS B SURFACE AG Negative (Negative); Hepatitis B Core AB IgM Positive (Negative)
--- NOTE | 2018-03-31 08:00 | PCM.PROGNOTE ---
Patient Problems: Active and Suspected Problems (Last Updated 03/29/18 @ 22:55 by Paul Schreiber MD) Meningitis (Acute) Methamphetamine dependence (Acute) Subjective: Chief complaint: Follow-up after admission for probable acute meningitis. Patient seen and examined. No acute events overnight. Today, he reports that his headache is getting better, has no more neck pain. Denies any other significant complaints. He has been afebrile overnight, blood pressure improved, other vital signs are stable. - Physical Exam General: Alert, Oriented x3, Cooperative, No apparent distress HEENT: Atraumatic, PERRLA, EOMI, Normocephalic Oral: Moist Mucosa, No Gingival or Mucosal Lesions/ Ulcerations Neck: Supple, No JVD, Negative Carotid Bruits, Trachea Midline, Thyroid Normal Size and Texture Lungs: Clear to auscultation, Normal air movement, No rhonchi, No wheeze, No rales Cardiovascular: Regular rate, Regular Rhythm, Normal S1, Normal S2, No murmurs Abdomen: Bowel Sounds Present, Soft, Non Tender, Non-Distended, No Hepato-splenomegaly Extremities: No clubbing, No cyanosis, No edema Skin: No breakdown, Rash Present Lymphatic: No Cervical, Supraclavicular, or Inguinal Adenopathy Neurological: Cranial nerves II-XII grossly intact, Motor Exam 5/5 strength throughout Psych/Mental Status: Normal Affect, Appropriate, Alert and oriented to time, place, person, mood and affect Vital Signs Temp Pulse Resp BP Pulse Ox 97.9 F 65 18 126/78 H 98 03/31/18 03:05 03/31/18 07:42 03/31/18 03:05 03/31/18 03:05 03/31/18 06:52 Oxygen Flow Rate (L/min) 2 Oxygen Delivery Method Room Air Weight: 220 lb 7.396 oz Body Mass Index (BMI) 26.8 Intake and Output for Last 24 Hours 03/29/18 03/30/18 03/31/18 23:59 23:59 23:59 Intake Total 4716 / 4716 520 / 520 Output Total 9000 / 9000 1500 / 1500 Balance -4284 / -4284 -980 / -980 Microbiology Past 72 Hours 03/29/18 20:20 Gram Stain - Final Csf, Spinal Fluid 03/29/18 20:20 Streptococcus pneumoniae Antigen (M - Final Csf, Spinal Fluid Laboratory Tests Past 24 Hrs 03/29/18 03/29/18 03/30/18 20:20 20:20 11:00 CSF Comment Reviewed Vancomycin Trough Hepatitis A IgM Ab Pending Hep Bs Antigen Pending Hep B Core IgM Ab Pending Hepatitis C Ab (EIA) Pending Herpes Simplex Culture Pending HSV I DNA PCR Pending HSV II DNA PCR Pending HSV Final Result Pending HIV 1&2 Antibody 03/30/18 03/30/18 11:00 19:38 CSF Comment Vancomycin Trough 12.0 Hepatitis A IgM Ab Hep Bs Antigen Hep B Core IgM Ab Hepatitis C Ab (EIA) Herpes Simplex Culture HSV I DNA PCR HSV II DNA PCR HSV Final Result HIV 1&2 Antibody Non-Reactive Medical Necessity - Tobacco Use Smoking Status: Current every day smoker Tobacco Use: Cigarettes Assessment/Plan All Active Problems (Last Updated 03/29/18 @ 22:55 by Paul Schreiber MD) Meningitis (Acute) Methamphetamine dependence (Acute) This is a 38 years old male patient presented to the emergency department because of headache and bilateral lower extremity skin rash, had a spike of fever in the ER, underwent lumbar puncture and he was admitted as a case of probable meningitis. #1 Probable acute bacterial meningitis: He is on IV acyclovir, Rocephin and vancomycin as well as IV steroids. He has been afebrile overnight, blood pressure improved, other vital signs are stable. Routine blood work was unremarkable from yesterday. Head and neck CTA revealed no evidence of acute hemodynamically significant vascular disease or stenosis, no hemorrhage or infarction. Infectious disease on the case, plan to continue same treatment. #2 elevated blood pressure: Started on HCTZ/lisinopril, blood pressure improved. #3 drug abuse: Patient admitted using methamphetamines. #4 tobacco abuse: Patient declined nicotine patch. #5 DVT prophylaxis: Subcu heparin. This note was generated with [employer] dictation software. It may contain incorrect words, spelling, and punctuation that were not noted in checking the note before signing. Code Visit Inpatient E&M: 73340 Subs Hosp L2
[2018-03-31] MEDS: Lisinopril 10 MG Tablet PO (09:37)
[2018-03-31] MEDS: hydroCHLOROthiazide 12.5mg 12.5 MG PO (09:52)
[2018-03-31] MEDS: Acetaminophen 500 MG Tablet PO (09:52)
--- NOTE | 2018-03-31 11:14 | CASEMGMT ---
SW spoke w/pt again in room, offered to assist pt in applying for Medicaid. Pt states he is just going to go down to [facility] and apply in person. Pt again states plans to go to [facility] at discharge, and is hopeful they will get him back on feet. Pt states he has been there once before in the past. Pt mentioned that the [facility] used to assist him, but they will not help him now as he owes them money. SW inquired if there is anything SW can do to assist, pt declined. No further needs, SW available should pt decide he would accept assist from [facility]. AZALEA Sosa, HYBRID POWERTRAIN DEVELOPMENT ENGINEER
[2018-03-31 11:24] LABS: Hep C Antibodies >11.0 s/co ratio (0.0-0.9)
[2018-03-31] MEDS: Morphine 2 MG/ML Syringe IV ×2 (11:54→17:49)
[2018-03-31 12:18] LABS: Hepatitis A IgM Antibody Negative (Negative)
--- NOTE | 2018-03-31 12:36 | NURSING ---
dr johnson notified pt Hep b core + Hep c virus +
--- NOTE | 2018-03-31 14:49 | PCM.PN.ID ---
Patient Problems: Active and Suspected Problems (Last Updated 03/29/18 @ 22:55 by Paul Schreiber MD) Meningitis (Acute) Methamphetamine dependence (Acute) Subjective: Feeling better, no fever, headache and neck pain improved. - Physical Exam General: Alert, Cooperative, No apparent distress Lungs: Clear to auscultation, Normal air movement Cardiovascular: Regular rate, Regular Rhythm Abdomen: Soft, Non Tender, Non-Distended Skin: No rashes Vital Signs Temp Pulse Resp BP Pulse Ox 98.3 F 79 16 138/78 H 100 03/31/18 09:05 03/31/18 10:00 03/31/18 09:05 03/31/18 09:05 03/31/18 09:05 Oxygen Flow Rate (L/min) 2 Oxygen Delivery Method Room Air Weight: 100 kg Body Mass Index (BMI) 26.8 Intake and Output for Last 24 Hours 03/29/18 03/30/18 03/31/18 23:59 23:59 23:59 Intake Total 4716 / 4716 1270 / 1270 Output Total 9000 / 9000 1999 / 1999 Balance -4284 / -4284 -730 / -730 Microbiology Past 72 Hours 03/29/18 20:20 Gram Stain - Final Csf, Spinal Fluid CSF Culture - Preliminary Culture exhibits no growth. 03/29/18 18:05 Urine Culture - Final Urine, Clean Catch Culture exhibits no growth. 03/29/18 20:20 Streptococcus pneumoniae Antigen (M - Final Csf, Spinal Fluid Laboratory Tests Past 24 Hrs 03/30/18 03/30/18 03/31/18 11:00 19:38 14:16 Vancomycin Trough 12.0 Hepatitis A IgM Ab Negative Hep Bs Antigen Negative Hep Bs Antibody Pending Hep B Core IgM Ab Positive H Hepatitis C Ab (EIA) >11.0 H HCV RNA Quant (PCR) Pending Medical Necessity - Tobacco Use Smoking Status: Current every day smoker Tobacco Use: Cigarettes Route of nutrition/ use of supplements: [] Nutritional Intake: [] IV Site: [] Colvin Catheter: [] - Assessment/Plan Antibiotics: [] Assessment/Plan: [] Active and Suspected Problems (Last Updated 03/29/18 @ 22:55 by Paul Schreiber MD) Meningitis (Acute) Methamphetamine dependence (Acute) acute meningitis - timing and severity raises concern for bacterial cause. CSF cx neg so far. Sx improved today. Continue vanc/ceftriaxone/acyclovir. HSV pcr pending. If CSF cx is finalized as neg, ok to stop antibiotics. If HSV pcr is neg, ok to stop acyclovir. If the PCR is not done by the time he is discharged, would send him home on po acyclovir 800mg tid for 10 days. IVDU - meth and heroin use. HIV was neg. Hep C Ab (+), will check pcr to look for active infection. Hep B Core (+), will check B Ab to see if he is immune. Will follow
--- NOTE | 2018-03-31 17:04 | CHAPLAIN ---
Type of Pastoral Visit ___ Initial Visit _x__ Follow-up Visit ___ On-call Visit ___ General Patient Visit ___ Spiritual Assessment ___ Family Conference ___ Bereavement ___ Rapid Response ___ Code Blue ___ Other (describe below) Pastoral Care Referral From _x__ Patient ___ Family ___ Nurse ___ Physician ___ User Interface Artist ___ Hand Crown Pouncer ___ Other (describe below) Sacrament/Intervention _x__ Active listening ___ Anointing ___ Orthodox ___ Bereavement ___ Communion _x__ Carrie exploration ___ _x__ Life review _x__ Prayer ___ Reconciliation ___ Sacrament of Sick _x__ Supportive presence ___ Wedding ___ Other (describe below) Pastoral Comments patient is alert and eating snacks; pt is more 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
[2018-03-31] MEDS: MELATONIN 10 MG TABLET 5 MG PO (21:34)
[2018-04-01] VITALS (11 sets, daily range): BP systolic 119–138; BP diastolic 69–77; PULSE 55–84; RESP 16–20; TEMP 36.3–36.9; O2SAT 96–100
[2018-04-01 04:05] LABS: Vancomycin, Trough Level 14.5 ug/mL (5.0-15.0)
[2018-04-01] MEDS: Morphine 2 MG/ML Syringe IV ×4 (04:27→20:05)
[2018-04-01] MEDS: 0.9% NaCl Peripheral Flush Adult/Peds IV ×3 (04:27→20:06)
--- NOTE | 2018-04-01 04:30 | PCM.RX.CS ---
Consult Pharmacy has been consulted to manage selected antiobiotic: Vancomycin Type of Consult: Follow-up Suspected Infection: Meningitis Prior Doses of Antibiotics Received/Current Regimen: Medications Vancomycin HCl 1,500 mg/ (Dextrose) 530 mls @ 250 mls/hr IV Q8H HERNAN Last Admin: 04/01/18 04:27 Dose: 250 mls/hr Labs: Sodium 135 mmol/L (136-145) L 03/30/18 06:00 Potassium 4.4 mmol/L (3.5-5.1) 03/30/18 06:00 Chloride 102 mmol/L (98-107) 03/30/18 06:00 Carbon Dioxide 24.0 mmol/L (21.0-32.0) 03/30/18 06:00 Anion Gap 9 (5-15) 03/30/18 06:00 BUN 10 mg/dL (7-18) 03/30/18 06:00 Creatinine 0.89 mg/dL (0.70-1.30) 03/30/18 06:00 Est GFR (MDRD) Af Amer 124 mL/min (>60) 03/30/18 06:00 Est GFR (MDRD) Non-Af 102 mL/min (>60) 03/30/18 06:00 BUN/Creatinine Ratio 11.2 RATIO (10-20) 03/30/18 06:00 Glucose 132 mg/dL (74-106) H 03/30/18 06:00 Vancomycin Trough 14.5 ug/mL (5.0-15.0) 04/01/18 03:29 Microbiology: Microbiology 03/29/18 20:20 Csf, Spinal Fluid Gram Stain - Final 03/29/18 20:20 Csf, Spinal Fluid CSF Culture - Preliminary Culture exhibits no growth. 03/29/18 18:05 Urine, Clean Catch Urine Culture - Final Culture exhibits no growth. 03/29/18 20:20 Csf, Spinal Fluid Streptococcus pneumoniae Antigen (M - Final Weight used for dosin kg Estimated Creatinine Clearance: 136 Goal Trough: 15-20 mcg/mL Pharmacy Plan for Drug Dosing: Trough level of 14.5 was received. Near to the target range 15-20 with the recent increase of dose to 1500mg q8h. Will continue at same dose since near target and with pending cultures due. Pharmacy Service will continue to monitor and adjust dosing as required. Follow-Up Labs: Trough Vancomycin Labs to be done on [date and time ordered]: 04/02/18 @2542
[2018-04-01] MEDS: hydroCHLOROthiazide 12.5mg 12.5 MG PO (10:20)
[2018-04-01] MEDS: Lisinopril 10 MG Tablet PO (10:20)
--- NOTE | 2018-04-01 11:26 | PN_ITS ---
Patient Problems: Active and Suspected Problems (Last Updated 03/29/18 @ 22:55 by Paul Schreiber MD) Meningitis (Acute) Methamphetamine dependence (Acute) Subjective: Chief complaint: Follow-up after admission for probable acute meningitis. Patient seen and examined. No acute events overnight. Today, he denied any significant complaints. He has no more headache, no more neck pain. He has been afebrile. His vital signs are stable. - Physical Exam General: Alert, Oriented x3, Cooperative, No apparent distress HEENT: Atraumatic, PERRLA, EOMI, Normocephalic Oral: Moist Mucosa, No Gingival or Mucosal Lesions/ Ulcerations Neck: Supple, No JVD, Negative Carotid Bruits, Trachea Midline, Thyroid Normal Size and Texture Lungs: Clear to auscultation, Normal air movement, No rhonchi, No wheeze, No rales Cardiovascular: Regular rate, Regular Rhythm, Normal S1, Normal S2, No murmurs Abdomen: Bowel Sounds Present, Soft, Non Tender, Non-Distended, No Hepato- splenomegaly Extremities: No clubbing, No cyanosis, No edema Skin: No breakdown, Rash Present Lymphatic: No Cervical, Supraclavicular, or Inguinal Adenopathy Neurological: Cranial nerves II-XII grossly intact, Neuro grossly intact Psych/Mental Status: Normal Affect, Appropriate, Alert and oriented to time, place, person, mood and affect Vital Signs Temp Pulse Resp BP Pulse Ox 98.4 F 79 18 138/69 H 100 04/01/18 09:40 04/01/18 09:40 04/01/18 09:40 04/01/18 09:40 04/01/18 09:40 Oxygen Flow Rate (L/min) 2 Oxygen Delivery Method Room Air Weight: 220 lb 7.396 oz Body Mass Index (BMI) 26.8 Intake and Output for Last 24 Hours 03/30/18 03/31/18 04/01/18 23:59 23:59 23:59 Intake Total 4716 / 4716 4241 / 4241 498.7 / 498.7 Output Total 9000 / 9000 3525 / 3525 2300 / 2300 Balance -4284 / -4284 716 / 716 -1801.3 / -1801.3 Microbiology Past 72 Hours 03/29/18 18:39 Blood Culture - Preliminary Blood Culture (Wb) - Anticubital Left No growth in 48 hours. 03/29/18 19:05 Blood Culture - Preliminary Blood Culture (Wb) - Anticubital Right No growth in 48 hours. 03/29/18 20:20 Gram Stain - Final Csf, Spinal Fluid CSF Culture - Preliminary Culture exhibits no growth. 03/29/18 18:05 Urine Culture - Final Urine, Clean Catch Culture exhibits no growth. 03/29/18 20:20 Streptococcus pneumoniae Antigen (M - Final Csf, Spinal Fluid Laboratory Tests Past 24 Hrs 03/30/18 03/31/18 04/01/18 11:00 14:16 03:29 Vancomycin Trough 14.5 Hepatitis A IgM Ab Negative Hep Bs Antigen Negative Hep Bs Antibody Pending Hep B Core IgM Ab Positive H Hepatitis C Ab (EIA) >11.0 H HCV RNA Quant (PCR) Pending Medical Necessity - Tobacco Use Smoking Status: Current every day smoker Tobacco Use: Cigarettes Assessment/Plan All Active Problems (Last Updated 03/29/18 @ 22:55 by Paul Schreiber MD) Meningitis (Acute) Methamphetamine dependence (Acute) This is a 38 years old male patient presented to the emergency department because of headache and bilateral lower extremity skin rash, had a spike of fever in the ER, underwent lumbar puncture and he was admitted as a case of probable meningitis. #1 Probable acute bacterial meningitis: Remained on IV acyclovir, Rocephin and vancomycin as well as IV steroids. He has been afebrile overnight, blood pressure improved, other vital signs are stable. Head and neck CTA revealed no evidence of acute hemodynamically significant vascular disease or stenosis, no hemorrhage or infarction. [facility] culture showed no growth, final is pending. Urine culture showed no growth. Blood culture showed no growth in 48 hours. Pneumococcal antigen was negative. Infectious disease on the case. HIV 1 and 2 antibodies were nonreactive. Patient tested positive for hepatitis B core a ntibodies and hepatitis C antibodies. Quantitative hepatitis C RNA viral load is pending as well as hepatitis B surface antibodies. HSV 1 and 2 DNR are pending as well. Plan: Continue same treatment, awaiting final results of the CSF culture, possible DC home tomorrow morning. #2 hepatitis C: Patient tested positive for hepatitis C antibodies. Hepatitis C RNA viral load is pending. Also, he tested positive for hepatitis B core antibodies but he was negative for hepatitis B surface antigen. Hepatitis B surface antibody are pending. #3 Newly diagnosed hypertension.: He is on HCTZ/lisinopril, blood pressure improved. He has no more headache or neck pain. #4 drug abuse: Patient admitted using methamphetamines and heroin. #5 tobacco abuse: Patient declined nicotine patch. #6 DVT prophylaxis: Subcu heparin. This note was generated with [employer] dictation software. It may contain incorrect words, spelling, and punctuation that were not noted in checking the note before signing. Code Visit Inpatient E&M: 02168 Subs Hosp L2
--- NOTE | 2018-04-02 01:26 | NURSING ---
Called to Pt. room to stop beeping IV pump. Pt. very upset, wants pumps turned off, acyclovir almost finished running. Pt. states to shut off pumps or he Will throw it across the room. He states he has had enough antibiotics and wants to sleep. This nurse offered to start IV in other area of arm and pt. refused.
[2018-04-02 02:10] VITALS: BP 104/52; PULSE 67; RESP 20; TEMP 36.7; O2SAT 97
[2018-04-02 03:03] VITALS: PULSE 67
[2018-04-02 03:07] LABS: HCV Quant. RNA PCR 2180000 IU/mL (.)
[2018-04-02 03:07] LABS: HSV 1 By PCR Negative (Negative)
--- NOTE | 2018-04-02 04:30 | NURSING ---
Dr. Schreiber in room to discuss need for Vanc. trough as pt. was earlier refusing blood draw. Pt. agreed at this time to blood draw.
[2018-04-02] MEDS: Morphine 2 MG/ML Syringe IV ×2 (04:37→08:53)
[2018-04-02] MEDS: 0.9% NaCl Peripheral Flush Adult/Peds IV ×2 (04:38→08:54)
[2018-04-02 05:25] LABS: Vancomycin, Trough Level 16.2 ug/mL (5.0-15.0)
[2018-04-02 07:25] VITALS: O2SAT 99
[2018-04-02 07:37] VITALS: PULSE 79
--- NOTE | 2018-04-02 07:47 | DCINST_ITS ---
- Discharge Diagnoses Current Active Problems: Current Active and Chronic Problems (Last Updated 03/29/18 @ 22:55 by Paul Schreiber MD) Meningitis (Acute) Methamphetamine dependence (Acute) You will use the following diet at home:: Cardiac Your food should be the consistency of: Regular Discharge Activity: Return to Normal Activity Weight Bearing Status: Full weight bearing Call your doctor if you observe: Fever of 101 or Higher, Shortness of breath, Dizziness, Fainting spells, Chest pain, Increased palpitations (irregular heartbeat), Uncontrolled pain Instructions: Controlling High Blood Pressure, Tips for Using Less Salt, Taking Your Blood Pressure, Discharge Instructions for High Blood Pressure (Hypertension), Meningitis, Bacterial Meningitis Allergies/Adverse Reactions: Allergies No Known Allergies Allergy (Verified 03/17/17 04:53) Medications to take at Discharge Acyclovir [Zovirax] 800 mg PO TID 10 Days tab 04/02/18 Lisinopril/Hydrochlorothiazide [Zestoretic 10/12.5 Tablet] 1 tab PO DAILY #30 tab 04/02/18 The following prescriptions were given: Lisinopril/Hydrochlorothiazide [Zestoretic 10/12.5 Tablet] 1 tab PO DAILY #30 tab Acyclovir [Zovirax] 800 mg PO TID 10 Days tab Primary Care Physician: Care Physician,No Primary [Primary Care Provider] - Please follow up with your Primary Care Physician in: 1 WEEK. Test Results: Test results from this visit will be discussed in further detail at your follow- up appointment, if applicable. Please Follow Up With: Ortiz Hoyt MD When: 2 weeks.,
[2018-04-02 08:10] VITALS: BP 129/70; PULSE 73; RESP 18; TEMP 36.6; O2SAT 97
[2018-04-02] MEDS: Lisinopril 10 MG Tablet PO (08:57)
[2018-04-02] MEDS: hydroCHLOROthiazide 12.5mg 12.5 MG PO (09:01)
--- NOTE | 2018-04-02 11:09 | PCM.DC.SUM ---
Discharge Date and Diagnosis Date of Admission: 03/29/18 Date of Discharge: 04/02/18 - Primary Discharge Diagnosis #1 probable acute bacterial meningitis. #2 hepatitis C. #3 newly diagnosed hypertension. Hospital Course and Treatment Imaging Results: Clinical Impression(s) from Imaging Studies Head CTA 03/29/18 17:26 IMPRESSION: No acute intracranial abnormality. Normal [place] without a demonstrated aneurysm or hemodynamically significant stenosis. Electronically Signed: Jaxon Marquezandreadeondre, at 19:14 EDT Tel , Service support , Neck CTA 03/29/18 17:26 IMPRESSION: Normal bilateral cervical carotid and vertebral arteries. Electronically Signed: Jaxon Marquezsami, at 19:15 EDT Tel , Service support , Dr. hoyt, infectious disease. Operations: None Procedures: - - Lumbar puncture. Summary of Care Provided: Patient seen and examined on the day of discharge and appeared to be stable to be discharged home. He has been afebrile for more than 72 hours. Headache and neck pain improved. His vital signs are stable. The patient is a 38 year old M admitted because of sudden onset headache, neck pain and skin rash on both legs and he had a spike of fever in the ER, underwent lumbar puncture and he was admitted as a case of probable meningitis. Upon admission, patient was febrile. Lumbar puncture performed in the ER and revealed clear colorless CSF, there was 644 WBCs, 648 polymorphonuclear, glucose 44 and total protein was 80. He was started on IV acyclovir, Rocephin and vancomycin for probable meningitis. CTA of the head and neck was unremarkable without evidence of acute vascular disease. Also upon admission, patient's blood pressure was elevated and it was 175/99 without prior history of hypertension. He completed 5 days of IV acyclovir, Rocephin and vancomycin. His blood culture showed no growth in 48 hours. CSF culture revealed no growth in 72 hours. Urine culture showed no growth. Pneumococcal antigen was negative. His routine blood work was unremarkable without evidence of leukocytosis. His lactic acid was normal. Urine analysis revealed no evidence of acute cystitis. Patient with a history of IV drug abuse and he admitted using meth amphetamines and heroin. Serology for HIV 1 and 2 antibodies were nonreactive. Hepatitis B antibodies was positive and hepatitis C RNA viral load sent and was pending at the time of discharge. Hepatitis B surface antigen was negative and hepatitis B core antibodies was positive. HSV 1 and 2 DNA sent and pending at the time of discharge. Infectious disease consulted and recommended to keep patient on IV antibiotics. Patient was started on lisinopril/HCTZ 4 newly diagnosed hypertension and his blood pressure improved. With IV antibiotic therapy, patient symptoms improved and he remained afebrile for more than 72 hours. Patient was discharged home in a stable medical condition, discharged on acyclovir for 10 days of treatment pending HSV 1 and 2 DNA PCR according to infectious disease recommendations, discharged without other antibiotics as he completed 5 days of IV Rocephin and vancomycin and his cultures came back negative, discharged on lisinopril/HCTZ for hypertension, recommended to check blood pressure at least twice daily, follow-up with PCP in 1 week, follow-up with infectious disease in 2 weeks. - Physical Exam General: Alert, Oriented x3, Cooperative, No apparent distress HEENT: Atraumatic, PERRLA, EOMI, Normocephalic Oral: Moist Mucosa, No Gingival or Mucosal Lesions/ Ulcerations Neck: Supple, No JVD, Negative Carotid Bruits, Trachea Midline, Thyroid Normal Size and Texture Lungs: No rhonchi, No wheeze, No rales Cardiovascular: Regular rate, Regular Rhythm, Normal S1, Normal S2, PMI Normal Abdomen: Bowel Sounds Present, Soft, Non Tender, Non-Distended, No Hepato-splenomegaly Extremities: No clubbing, No cyanosis Skin: No breakdown, Rash Present - Rash on both legs start to fade. Neurological: Cranial nerves II-XII grossly intact, Motor Exam 5/5 strength throughout Psych/Mental Status: Normal Affect, Appropriate Vital Signs Temp Pulse Resp BP Pulse Ox 97.9 F 73 18 129/70 H 97 04/02/18 08:10 04/02/18 08:10 04/02/18 08:10 04/02/18 08:10 04/02/18 08:10 Oxygen Flow Rate (L/min) 2 Oxygen Delivery Method Room Air Weight: 220 lb 7.396 oz Body Mass Index (BMI) 26.8 Intake and Output for Last 24 Hours 03/31/18 04/01/18 04/02/18 23:59 23:59 22:59 Intake Total 4241 / 4241 6085.7 / 6085.7 350 / 350 Output Total 3525 / 3525 5550 / 5550 500 / 500 Balance 716 / 716 535.7 / 535.7 -150 / -150 Microbiology Past 72 Hours 03/29/18 20:20 Gram Stain - Final Csf, Spinal Fluid CSF Culture - Final No growth in 72 hours. 03/29/18 18:39 Blood Culture - Preliminary Blood Culture (Wb) - Anticubital Left No growth in 48 hours. 03/29/18 19:05 Blood Culture - Preliminary Blood Culture (Wb) - Anticubital Right No growth in 48 hours. 03/29/18 18:05 Urine Culture - Final Urine, Clean Catch Culture exhibits no growth. Laboratory Tests Past 24 Hrs 04/02/18 04:45 Vancomycin Trough 16.2 H Discharge Activity: Return to Normal Activity Weight Bearing Status: Full weight bearing Call your doctor if you observe: Fever of 101 or Higher, Shortness of breath, Dizziness, Fainting spells, Chest pain, Increased palpitations (irregular heartbeat), Uncontrolled pain Home Medications: Medications to take at Discharge Acyclovir [Zovirax] 800 mg PO TID 10 Days tab 04/02/18 Lisinopril/Hydrochlorothiazide [Zestoretic 10/12.5 Tablet] 1 tab PO DAILY #30 tab 04/02/18 Following Prescrptions Were Given to Patient: Lisinopril/Hydrochlorothiazide [Zestoretic 10/12.5 Tablet] 1 tab PO DAILY #30 tab Acyclovir [Zovirax] 800 mg PO TID 10 Days tab Primary Care Physician: Care Physician,No Primary [Primary Care Provider] - Please follow up with your Primary Care Physician in: 1 WEEK. Please Follow Up With: Ortiz Hoyt MD When: 2 weeks., Patient Instructions: Controlling High Blood Pressure, Tips for Using Less Salt, Taking Your Blood Pressure, Bacterial Meningitis, Discharge Instructions for High Blood Pressure (Hypertension), Meningitis Medical Necessity - Tobacco Use Smoking Status: Current every day smoker Tobacco Use: Cigarettes Meaningful Use Info Meaningful Use Diagnoses (Choose all that apply): None applicable Code Visit Inpatient E&M: 71105 Disch Hosp
--- NOTE | 2018-04-02 11:18 | DS.PCM_ITS ---
Discharge Date and Diagnosis Date of Admission: 03/29/18 Date of Discharge: 04/02/18 - Primary Discharge Diagnosis #1 probable acute bacterial meningitis. #2 hepatitis C. #3 newly diagnosed hypertension. Hospital Course and Treatment Imaging Results: Clinical Impression(s) from Imaging Studies Head CTA 03/29/18 17:26 IMPRESSION: No acute intracranial abnormality. Normal [place] without a demonstrated aneurysm or hemodynamically significant stenosis. Electronically Signed: Jaxon Marquezandreadeondre, at 19:14 EDT Tel , Service support , Neck CTA 03/29/18 17:26 IMPRESSION: Normal bilateral cervical carotid and vertebral arteries. Electronically Signed: Jaxon Marquezsami, at 19:15 EDT Tel , Service support , Dr. hoyt, infectious disease. Operations: None Procedures: - - Lumbar puncture. Summary of Care Provided: Patient seen and examined on the day of discharge and appeared to be stable to be discharged home. He has been afebrile for more than 72 hours. Headache and neck pain improved. His vital signs are stable. The patient is a 38 year old M admitted because of sudden onset headache, neck pain and skin rash on both legs and he had a spike of fever in the ER, underwent lumbar puncture and he was admitted as a case of probable meningitis. Upon admission, patient was febrile. Lumbar puncture performed in the ER and revealed clear colorless CSF, there was 644 WBCs, 648 polymorphonuclear, glucose 44 and total protein was 80. He was started on IV acyclovir, Rocephin and vancomycin for probable meningitis. CTA of the head and neck was unremarkable without evidence of acute vascular disease. Also upon admission, patient's blood pressure was elevated and it was 175/99 without prior history of hypertension. He completed 5 days of IV acyclovir, Rocephin and vancomycin. His blood culture showed no growth in 48 hours. CSF culture revealed no growth in 72 hours. Urine culture showed no growth. Pneumococcal antigen was negative. His routine blood work was unremarkable without evidence of leukocytosis. His lactic acid was normal. Urine analysis revealed no evidence of acute cystitis. Patient with a history of IV drug abuse and he admitted using meth amphetamines and heroin. Serology for HIV 1 and 2 antibodies were nonreactive. Hepatitis B antibodies was positive and hepatitis C RNA viral load sent and was pending at the time of discharge. Hepatitis B surface antigen was negative and hepatitis B core antibodies was positive. HSV 1 and 2 DNA sent and pending at the time of discharge. Infectious disease consulted and recommended to keep patient on IV antibiotics. Patient was started on lisinopril/HCTZ 4 newly diagnosed hypertension and his blood pressure improved. With IV antibiotic therapy, patient symptoms improved and he remained afebrile for more than 72 hours. Patient was discharged home in a stable medical condition, discharged on acyclovir for 10 days of treatment pending HSV 1 and 2 DNA PCR according to infectious disease recommendations, discharged without other antibiotics as he completed 5 days of IV Rocephin and vancomycin and his cultures came back negative, discharged on lisinopril/HCTZ for hypertension, recommended to check blood pressure at least twice daily, follow-up with PCP in 1 week, follow-up with infectious disease in 2 weeks. - Physical Exam General: Alert, Oriented x3, Cooperative, No apparent distress HEENT: Atraumatic, PERRLA, EOMI, Normocephalic Oral: Moist Mucosa, No Gingival or Mucosal Lesions/ Ulcerations Neck: Supple, No JVD, Negative Carotid Bruits, Trachea Midline, Thyroid Normal Size and Texture Lungs: No rhonchi, No wheeze, No rales Cardiovascular: Regular rate, Regular Rhythm, Normal S1, Normal S2, PMI Normal Abdomen: Bowel Sounds Present, Soft, Non Tender, Non-Distended, No Hepato- splenomegaly Extremities: No clubbing, No cyanosis Skin: No breakdown, Rash Present - Rash on both legs start to fade. Neurological: Cranial nerves II-XII grossly intact, Motor Exam 5/5 strength throughout Psych/Mental Status: Normal Affect, Appropriate Vital Signs Temp Pulse Resp BP Pulse Ox 97.9 F 73 18 129/70 H 97 04/02/18 08:10 04/02/18 08:10 04/02/18 08:10 04/02/18 08:10 04/02/18 08:10 Oxygen Flow Rate (L/min) 2 Oxygen Delivery Method Room Air Weight: 220 lb 7.396 oz Body Mass Index (BMI) 26.8 Intake and Output for Last 24 Hours 03/31/18 04/01/18 04/02/18 23:59 23:59 22:59 Intake Total 4241 / 4241 6085.7 / 6085.7 350 / 350 Output Total 3525 / 3525 5550 / 5550 500 / 500 Balance 716 / 716 535.7 / 535.7 -150 / -150 Microbiology Past 72 Hours 03/29/18 20:20 Gram Stain - Final Csf, Spinal Fluid CSF Culture - Final No growth in 72 hours. 03/29/18 18:39 Blood Culture - Preliminary Blood Culture (Wb) - Anticubital Left No growth in 48 hours. 03/29/18 19:05 Blood Culture - Preliminary Blood Culture (Wb) - Anticubital Right No growth in 48 hours. 03/29/18 18:05 Urine Culture - Final Urine, Clean Catch Culture exhibits no growth. Laboratory Tests Past 24 Hrs 04/02/18 04:45 Vancomycin Trough 16.2 H Discharge Activity: Return to Normal Activity Weight Bearing Status: Full weight bearing Call your doctor if you observe: Fever of 101 or Higher, Shortness of breath, Dizziness, Fainting spells, Chest pain, Increased palpitations (irregular heartbeat), Uncontrolled pain Home Medications: Medications to take at Discharge Acyclovir [Zovirax] 800 mg PO TID 10 Days tab 04/02/18 Lisinopril/Hydrochlorothiazide [Zestoretic 10/12.5 Tablet] 1 tab PO DAILY #30 tab 04/02/18 Following Prescrptions Were Given to Patient: Lisinopril/Hydrochlorothiazide [Zestoretic 10/12.5 Tablet] 1 tab PO DAILY #30 tab Acyclovir [Zovirax] 800 mg PO TID 10 Days tab Primary Care Physician: Care Physician,No Primary [Primary Care Provider] - Please follow up with your Primary Care Physician in: 1 WEEK. Please Follow Up With: Ortiz Hoyt MD When: 2 weeks., Patient Instructions: Controlling High Blood Pressure, Tips for Using Less Salt, Taking Your Blood Pressure, Bacterial Meningitis, Discharge Instructions for High Blood Pressure (Hypertension), Meningitis Medical Necessity - Tobacco Use Smoking Status: Current every day smoker Tobacco Use: Cigarettes Meaningful Use Info Meaningful Use Diagnoses (Choose all that apply): None applicable Code Visit Inpatient E&M: 95989 Disch Hosp
[2018-04-03 11:47] LABS: HCV log 10 6.338 (.); Hep B Surface Antibodies Reactive (.)
[2018-04-03 11:47] LABS: HSV 2 By PCR Negative (Negative)
== END 2018-04-02 10:07 | disposition home or self-care (01) | DRG 96 ==
LOC: ED 17:33 → PCU 21:59
PROVIDERS: Internal Medicine Infectious Disease; Admitting Provider Hospitalist; Emergency Provider Emergency Medicine; Visit Provider Hospitalist
DX: G00.9 Bacterial meningitis, unspecified (principal); B19.20 Unspecified viral hepatitis C without hepatic coma; I10 Essential (primary) hypertension; F17.210 Nicotine dependence, cigarettes, uncomplicated; F11.10 Opioid abuse, uncomplicated; F15.10 Other stimulant abuse, uncomplicated; R21 Rash and other nonspecific skin eruption
CPT/HCPCS: 36415; 70496; 70498; 80048; 80053; 80074; 80202; 81001; 82945; 83605; 84157; 85025; 85027; 85610; 85730; 86703; 86706; 87040; 87070; 87086; 87205; 87449; 87522; 87529; 89050; 89051; 93005; 97802; 99285; 99406; J7030; J7040; J7050; Q9967; A4216; J0696; J2405

== ENCOUNTER 2018-04-12 19:46 | Emergency (ER) | payer MEDICAID, SELFPAY ==
[2018-04-12] VITALS (8 sets, daily range): BP systolic 142–210; BP diastolic 89–134; PULSE 88–104; RESP 18–33; TEMP 36.5; O2SAT 94–100; BMI 28.0
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
[2018-04-12] MEDS: morphine 8 MG/ML Syringe SC (20:14)
[2018-04-12] MEDS: fentaNYL 100 MCG/2 ML Ampul 50 MCG IV (21:49)
--- NOTE | 2018-04-12 21:55 | RAD_ITS ---
STUDY: X-RAY CHEST REASON FOR EXAM: Male, 38 years old. Chest tube placement TECHNIQUE: AP portable COMPARISON: None. FINDINGS: Diminished inspiratory effort is seen. There is mild right perihilar infiltrate or pulmonary edema There is no demonstrated pleural abnormality. Right chest tube is present. Heart is enlarged although exaggerated by radiographic technique Normal mediastinum and lul. Normal visualized pulmonary arteries. Normal visualized aortic arch and descending thoracic aorta. Normal visualized thoracic spine. Normal visualized, clavicles, and shoulders. Multiple mildly displaced posterior right rib fractures There is no demonstrated abnormality of the visualized soft tissue structures of the upper abdomen. RAD/Chest 1 View (Portable) IMPRESSION: Right perihilar infiltrate or pulmonary edema No evidence for pneumothorax or gross pleural effusion status post right chest tube placement Electronically Signed: Jaison Jackson MD at 22:33 EST , Service support ,
[2018-04-12] MEDS: HYDROmorphone 1 MG/ML Syringe IV (22:54)
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
== END 2018-04-12 23:41 | disposition home or self-care (01) ==
PROVIDERS: Emergency Provider Emergency Medicine
DX: S22.41XA Multiple fractures of ribs, right side, initial encounter for closed fracture (principal); S27.2XXA Traumatic hemopneumothorax, initial encounter; T79.7XXA Traumatic subcutaneous emphysema, initial encounter; S32.019A Unspecified fracture of first lumbar vertebra, initial encounter for closed fracture; S00.83XA Contusion of other part of head, initial encounter; Y04.2XXA Assault by strike against or bumped into by another person, initial encounter; Y93.9 Activity, unspecified; Y92.9 Unspecified place or not applicable; Y99.9 Unspecified external cause status; Z72.0 Tobacco use
CPT/HCPCS: 32551; 70450; 71045; 71250; 96374; 96375; 99152; 99285; J7030; A4216

== ENCOUNTER 2018-08-09 04:44 | Emergency (ER) | payer SELFPAY ==
[2018-04-12 19:48] VITALS: BMI 28.0
[2018-08-09 04:47] VITALS: BP 161/114; PULSE 94; RESP 20; TEMP 36.9; O2SAT 99; BMI 30.4
--- NOTE | 2018-08-09 05:39 | RAD_ITS ---
STUDY: X-RAY CHEST REASON FOR EXAM: Male, 38 years old. Overdose TECHNIQUE: Frontal view COMPARISON: None. FINDINGS: There is suboptimal inspiration. There are NO acute infiltrates. There is NO pleural effusion or pneumothorax. Normal size heart. Normal mediastinum and lul. Normal visualized pulmonary arteries. Normal visualized aortic arch and descending thoracic aorta. Normal visualized thoracic spine. Normal visualized ribs, clavicles, and shoulders. There is no demonstrated abnormality of the visualized soft tissue structures of the upper abdomen. RAD/Chest 1 View (Portable) IMPRESSION: There is suboptimal inspiration. There are NO acute infiltrates. There is NO pleural effusion or pneumothorax. Normal size heart. Electronically Signed: Joel Caceres MD at 6:15 EDT , Service support ,
[2018-08-09 06:02] LABS: Absolute Lymphocyte Count 2.29 X10^3/ul (0.83-4.51); Absolute Neutrophil Count 3.2 X10^3/uL (2.0-7.7); Basophil# 0.01 X10^3/uL; Basophil% 0.2 % (0-1); Eosinophil# 0.19 X10^3/uL; Hematocrit 42.1 % (40-54); Hemoglobin 13.9 g/dl (13.0-16.5); Lymphocyte # 2.29 X10^3/ul (4.0); Lymphocyte % 36.1 % (19-41); Mean Corpuscular Hgb 26.4 pg (27.0-32.0); Mean Corpuscular Volume 79.9 fL (80-94); Mean Platelet Vol. 9.3 fl (6.2-12.0); Monocyte# 0.61 X10^3/uL; Monocyte% 9.6 % (0-10); Neutrophil # 3.23 X10^3/uL (2.7-7.7); Neutrophil % 50.9 % (47-70); Platelet Count 227 K/mm3 (150-450); RBC Distribution Width CV 14.1 % (11.6-14.6); RBC Distribution Width SD 40.6 fl (35.1-43.9); Red Blood Count 5.27 M/mm3 (4.6-6.2); White Blood Count 6.3 K/mm3 (4.4-11.0)
[2018-08-09 06:08] LABS: Anion Gap 9 (5-15); BUN 16 mg/dL (7-18); BUN/Creat Ratio 17.1 RATIO (10-20); Calcium,Total 8.7 mg/dL (8.5-10.1); Chloride 107 mmol/L (98-107); Creatinine, Serum 0.94 mg/dL (0.70-1.30); EST Glomerular Filtration Rate 96 mL/min (>60); Est Glom Filt Rate - Afr Amer 116 mL/min (>60); Glucose 98 mg/dL (74-106); Potassium 3.8 mmol/L (3.5-5.1); Sodium Level 143 mmol/L (136-145)
[2018-08-09 06:12] LABS: POSITIVE COUNT NO; POSITIVE DIFFERENTIAL NO; POSITIVE MORPHOLOGY NO
[2018-08-09 06:26] LABS: Alcohol, Blood (Medical)-Serum < 3.0 mg/dL
[2018-08-09 06:46] VITALS: BP 143/87; PULSE 66; RESP 17; O2SAT 98
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
[2018-08-09 08:14] VITALS: BP 150/84; PULSE 71; RESP 16; O2SAT 98
--- NOTE | 2018-08-09 22:08 | ED.RN ---
information looked up for [place] police at this time
== END 2018-08-09 09:23 | disposition home or self-care (01) ==
PROVIDERS: Emergency Provider Emergency Medicine
DX: F19.10 Other psychoactive substance abuse, uncomplicated (principal)
CPT/HCPCS: 71045; 80048; 80320; 85025; 99284; G0480

== ENCOUNTER 2019-01-29 09:58 | Emergency (ER) | payer MEDICAID, SELFPAY ==
[2019-01-29 09:59] VITALS: BP 161/85; PULSE 105; RESP 17; TEMP 36.2; O2SAT 99; BMI 28.5
--- NOTE | 2019-01-29 10:44 | ED.DCSUM_ITS ---
History of Present Illness Chief Complaint: Lower Extremity Injury Informant: Patient Occurred: Days - 9 Context: Gradual Onset - after jogging 1-2 miles, w/ some sprinting Timing: Continuous Quality of Pain: Aching Location: both anterior knees, radiating into both mid-lower legs Current Severity: Moderate Maximum Severity: Severe Worsened by: standing, walking Relieved by: resting Associated Symptoms: Negative for: Parasthesia, Weakness, Loss of Funtion Narrative: Patient states he started having the pain in both lower legs and knees elbert ecially gradually after he ran 1 or 2 miles, sprinting some of it. He states he has not run in a long time, he has been incarcerated for the last 6 months or so. In addition to this, he is working a job that he has basically standing on his feet 12 hours a day, pains have been progressively getting worse. He denies any paresthesias. Past Medical History - Allergies and Home Meds Allergies/Adverse Reactions: Allergies No Known Allergies Allergy (Verified 01/29/19 09:58) Primary Care Physician: Gayatri Campos [NON-STAFF] - 1 Week if not improving Surgical History: no surgical history Smoking Status: Current every day smoker - Family History Maternal Family History: Family History (Last Updated 03/29/18 @ 22:56 by Paul Schreiber MD) Father Hypertension Family History: Reports: Cancer - Lymphoma Review of Systems General: Denies: Chills, Fever, Sweats Gastrointestinal: Denies: Nausea, Vomiting Musculoskeletal: Reports: Swelling - ankles, Extremity Pain Skin: Denies: Rash, Wounds Neurological: Denies: Headache, Weakness, Parasthesia, Numbness Physical Exam Vital Signs/Narrative: Vital Signs Temp Pulse Resp BP Pulse Ox 01/29/19 09:59 97.1 F L 105 H 17 161/85 H 99 Inital Vital Signs reviewed: Yes ED - Lower Extremity Diagram: 1 - ttp 2 - ttp 3 - mild ttp, soft 4 - mild ttp, soft - Extremity Exam Right Knee: Negative for: Limited ROM - No effusion. Extensor mechanism intact. All ligaments stable and without ligament pain on stressing, including negative Lockman and posterior drawer. Tender at the patella and patellar ligament. No swelling. Left Knee: Negative for: Limited ROM - No effusion. Extensor mechanism intact. All ligaments stable and without ligament pain on stressing, including negative Lockman and posterior drawer. Tender at the patella and patellar ligament. No swelling. General: Well nourished, Well developed Head: Normocephalic, Atraumatic Cardiovascular: - - 2+/4 bilateral posterior tibial pulses Skin: Normal color, No rash, No Trauma Neurological: Alert, Oriented x3, Cranial nerves II-XII grossly intact, Normal Strength, Normal Sensation, Normal Gait - antalgic, but able Psychological: Normal affect, Normal Mood Diagnostic/Tx/Re-eval - Medical Decision Making Patient is tender in the lower patellofemoral area, not at the thigh. He is also mildly tender into the anterior compartment musculature, just lateral to the tibia, bilaterally. He has full range of motion of the knees and ankles. When I forcibly plantarflex both feet, he does not have any significant pain in his anterior compartments. All lower leg compartments are soft and nondistended. He does have some mild dependent edema in both ankles which I suspect is dependent from the inflammation more proximally. I think this is all overuse musculoskeletal problem, he has been standing on his feet all day every day after the initial insult. He needs rest, anti-inflammatories. Give him a prescription for ibuprofen at his request in addition to some steroids, the latter of which advised to use first. He will need to rest and ice. There is no evidence of acute compartment syndrome at this time, we discussed reasons to return. ED Disposition - Plan for ED Patient: Disposition: Home or Assisted Living Diagnosis: Patellofemoral arthralgia of both knees, Villalobos splints Instructions: Reducing Knee Pain and Swelling, Villalobos Splints, KNEE PAIN, Uncertain Cause Prescriptions: Prednisone [Deltasone] 40 mg PO DAILY #10 tab Prescription Printed Ibuprofen 800 mg PO Q12H PRN PRN #20 tab PRN Reason: Pain Prescription Printed Referrals: Gayatri Campos [NON-STAFF] - 1 Week if not improving
[2019-01-29] MEDS: predniSONE 20 MG Tablet 40 MG PO (11:01)
== END 2019-01-29 11:03 | disposition home or self-care (01) ==
LOC: ED 10:53
PROVIDERS: Emergency Provider Emergency Medicine
DX: M25.562 Pain in left knee (principal); M25.561 Pain in right knee; S86.891A Other injury of other muscle(s) and tendon(s) at lower leg level, right leg, initial encounter; S86.892A Other injury of other muscle(s) and tendon(s) at lower leg level, left leg, initial encounter; X58.XXXA Exposure to other specified factors, initial encounter; Y93.02 Activity, running; Y92.9 Unspecified place or not applicable; Y99.9 Unspecified external cause status; F17.200 Nicotine dependence, unspecified, uncomplicated
CPT/HCPCS: 99283